=== PATIENT | female | born 1995 | race Caucasian/White ===

== ENCOUNTER → 2018-05-12 | Outpatient (CLI) | payer OTHER ==
[~2018-05-12] VITALS: Ht 165.1 cm; Wt 49.2 kg
[~2018-05-12] MED LIST: ONE DAILY TABL1 EACH PO; PROMETHAZINE HC25 M1 PO
[2018-05-12 13:06] VITALS: BP 124/73
== END | disposition home or self-care (01) ==
LOC: IVINF 12:57
DX: Z34.83 Encounter for supervision of other normal pregnancy, third trimester (principal); Z31.82 Encounter for Rh incompatibility status; Z3A.28 28 weeks gestation of pregnancy; Z67.11 Type A blood, Rh negative
CPT/HCPCS: 96372; J2790